=== PATIENT | male | born 1960 | race Caucasian/White ===

== ENCOUNTER 2016-07-21 14:42 | Emergency (ER) | payer BC, OTHER ==
[~2016-07-21] VITALS: Ht 175.3 cm; Wt 88.0 kg
[2016-07-21 15:04] VITALS: Ht 175.3 cm; Wt 88.0 kg
--- NOTE | 2016-07-21 16:03 | ERD ---
ER Documentation Chief Complaint Date/Time DATE: 07/21/16 TIME: 16:02 Chief Complaint generalized itchiness x 1 month HPI 55-year-old male otherwise healthy complains of generalized itching for the past month. He states it is worse on his legs, however affects his torso and arms. He also states that he had a low back surgery about 7-8 years ago and ever since then he has had lower abdominal pain. He denies any right upper quadrant pain. He states that he has a distant history of drinking when he was younger however does not drink regularly, reports occasional alcohol only. He denies any fevers or chills. He is also had a dry cough for the last 1 month. ROS All systems reviewed and are negative except as per history of present illness. Medications Home Meds Active Scripts Cetirizine Hcl* (Zyrtec*) 10 Mg Capsule, 10 MG PO DAILY, #30 TAB Prov:ASAF ANGELES PA-C 07/21/16 Hydroxyzine Hcl* (Atarax*) 25 Mg Tab, 25 MG PO Q6H Y for ITCHING, #30 TAB Prov:ASAF ANGELES PA-C 07/21/16 Reported Medications [None] No Conflict Check 09/03/09 Allergies Allergies: Coded Allergies: No Known Allergies (Verified Allergy, Mild, 09/03/09) PMhx/Soc Medical and Surgical Hx: pt denies Medical Hx, pt denies Surgical Hx History of Surgery: No Anesthesia Reaction: No Hx Neurological Disorder: No (DENIES) Hx Respiratory Disorders: No Hx Cardiac Disorders: No Hx Psychiatric Problems: No Hx Miscellaneous Medical Probl: No Hx Alcohol Use: Yes Hx Substance Use: No Hx Tobacco Use: Yes Smoking Status: Current every day smoker Physical Exam Vitals Vital Signs Date Time Temp Pulse Resp B/P Pulse Ox O2 Delivery O2 Flow Rate FiO2 07/21/16 15:04 98.6 94 18 137/92 99 Physical Exam General: Well-developed, well-nourished. The patient appears in no acute distress. HEENT: Head is normocephalic, atraumatic. No scleral icterus. Pupils are equal , round, and reactive. Oral mucous membranes are moist. No pharyngeal erythema. Neck: Supple. Nontender. Lungs: Clear to auscultation. Normal air movement. Heart: Regular rate and rhythm. S1 and S2 are normal. No murmurs, gallops, or rubs. Abdomen: Soft, scarring lower abdomen, no tenderness, no masses, no hepatosplenomegaly. No negative Farley sign. Extremities: No clubbing or cyanosis. Normal pulses. Moving extremities x 4. No weakness. Neurologic: Alert and oriented 3. No focal deficits. Skin: Normal turgor. No rash or lesions. Result Diagram: 07/21/16 1558 07/21/16 1558 Results 24 hrs Laboratory Tests Test 07/21/16 15:58 White Blood Count 10.210^3/ul Red Blood Count 5.3410^6/ul Hemoglobin 16.5g/dl Hematocrit 48.6% Mean Corpuscular Volume 91.0fl Mean Corpuscular Hemoglobin 30.9pg Mean Corpuscular Hemoglobin Concent 34.0g/dl Red Cell Distribution Width 13.1% Platelet Count 08638^3/UL Mean Platelet Volume 10.4fl Neutrophils % 62.5% Lymphocytes % 29.2% Monocytes % 5.8% Eosinophils % 1.7% Basophils % 0.7% Nucleated Red Blood Cells % 0.0/100WBC Sodium Level 141mmol/L Potassium Level 4.0mmol/L Chloride Level 103mmol/L Carbon Dioxide Level 23mmol/L Anion Gap 19 Blood Urea Nitrogen 10mg/dl Creatinine 0.74mg/dl Glucose Level 103mg/dl Calcium Level 9.3mg/dl Total Bilirubin 0.3mg/dl Direct Bilirubin 0.00mg/dl Indirect Bilirubin 0.3mg/dl Aspartate Amino Transf (AST/SGOT) 45IU/L Alanine Aminotransferase (ALT/SGPT) 65IU/L Alkaline Phosphatase 108IU/L Total Protein 8.6g/dl Albumin 4.6g/dl Globulin 4.00g/dl Albumin/Globulin Ratio 1.15 Lipase 93U/L PROCEDURE: Chest x-ray CLINICAL INDICATION: Cough TECHNIQUE: Chest single view COMPARISON: None FINDINGS: The heart is normal in size. The pulmonary vessels are normal in caliber. The lungs are clear. The costophrenic angles are sharp. The visualized bony thorax is unremarkable. There is lower cervical spine fusion IMPRESSION: No acute cardiopulmonary disease. RPTAT: .Jordin Castellon MD, MD Date Time Electronically viewed and signed by .Jordin Castellon MD, on 07/21/2016 16:14 .W/ Procedures/MDM 55-year-old male comes in with generalized pruritus, dry cough. Patient's workup included CBC, chemistry, that was unremarkable. There are no signs of any cellulitis, abscess, shingles, varicella, zoster, scabies. LFTs are normal , bilirubin was unremarkable today. Chest x-ray was performed that was negative , patient was given loratadine for cough symptoms, and Atarax for itching. Departure Diagnosis: Primary Impression: Generalized pruritus Additional Impression: Cough Condition: ASAF Sullivan PA-C Jul 21, 2016 16:03
--- NOTE | 2016-07-21 16:14 | RADRPT ---
PROCEDURE: Chest x-ray CLINICAL INDICATION: Cough TECHNIQUE: Chest single view COMPARISON: None FINDINGS: The heart is normal in size. The pulmonary vessels are normal in caliber. The lungs are clear. Th e costophrenic angles are sharp. The visualized bony thorax is unremarkable. There is lower cervica l spine fusion IMPRESSION: No acute cardiopulmonary disease. RPTAT: HH .Jordin Castellon MD, Date Time Electronically viewed and signed by .Jordin Castellon MD, MD on 07/21/2016 16:14 .W/
[2016-07-21 16:16] LABS: ADD SCAN DIFF NO
[2016-07-21 16:27] LABS: ALBUMIN 4.6 g/dl (3.3-4.9)
[2016-07-21 16:28] LABS: HEMATOCRIT 48.6 % (42.0-52.0); HEMOGLOBIN 16.5 g/dl (14.0-18.0); RED BLOOD COUNT 5.34 10^6/ul (4.70-6.10); WHITE BLOOD COUNT 10.2 10^3/ul (4.8-10.8)
[2016-07-21 16:29] LABS: BASOPHILS % 0.7 % (0.0-2.0); EOSINOPHILS % 1.7 % (0.0-7.0); LYMPHOCYTES % 29.2 % (15.0-51.0); MEAN CORPUSCULAR HEMOGLOBIN 30.9 pg (29.0-33.0); MEAN PLATELET VOLUME 10.4 fl (7.4-10.4); MONOCYTES % 5.8 % (0.0-11.0); NEUTROPHILS % 62.5 % (39.0-77.0); PLATELET COUNT 250 10^3/UL (140-440); RED CELL DISTRIBUTION WIDTH 13.1 % (11.5-14.5)
[2016-07-21 16:30] LABS: ALBUMIN/GLOBULIN RATIO 1.15; BILIRUBIN,INDIRECT 0.3 mg/dl (0-1.1); BILIRUBIN,TOTAL 0.3 mg/dl (0.2-1.3); CREATININE 0.74 mg/dl (0.61-1.24); TOTAL PROTEIN 8.6 g/dl (6.1-8.1)
[2016-07-21 16:31] LABS: CALCIUM 9.3 mg/dl (8.4-10.2)
[2016-07-21] MEDS ORDERED: CETI10CA PO (16:42)
[2016-07-21] MEDS ORDERED: HYDR-842 PO (16:42)
[2016-07-21 17:01] LABS: ADD UMIC NO; URINE BILIRUBIN (Dip) NEGATIVE (NEGATIVE); URINE BLOOD (Dip) NEGATIVE (NEGATIVE); URINE COLOR YELLOW (YELLOW); URINE GLUCOSE (Dip) NEGATIVE (NEGATIVE); URINE KETONES (Dip) NEGATIVE (NEGATIVE); URINE LEUKOCYTE ESTERASE (Dip) NEGATIVE (NEGATIVE); URINE NITRITE (Dip) NEGATIVE (NEGATIVE); URINE TOTAL PROTEIN (Dip) NEGATIVE (NEGATIVE); URINE UROBILINOGEN (Dip) 0.2 E.U./dL (0.1-1.0)
[2016-07-21 17:48] VITALS: BP 137/88; PULSE 77; RESP 18; TEMP 98.6
== END 2016-07-21 17:49 | disposition home or self-care (01) ==
LOC: FTE 14:42
DX: L29.9 Pruritus, unspecified (principal); R05 Cough; F17.210 Nicotine dependence, cigarettes, uncomplicated
CPT/HCPCS: 71010; 80053; 81003; 83690; 85025